=== PATIENT | female | born 1960 | race Caucasian/White ===

== ENCOUNTER 2019-02-16 11:46 | Day surgery (SDC) | payer OTHER | END 2019-02-16 17:20 | disposition home or self-care (01) | LOC: AMB-ENDOS 11:46 | DX: D12.8 Benign neoplasm of rectum (principal) ==

== ENCOUNTER 2019-03-03 13:07 | Inpatient (IN) | payer OTHER ==
[~2019-03-03] VITALS: Ht 157.5 cm; Wt 78.0 kg
[2019-04-01] MEDS ORDERED: NORVASC5 MG (12:06)
[2019-04-01] MEDS ORDERED: VALSARTAN320 MG (12:06)
[2019-04-01] MEDS ORDERED: BISOPROL (12:06)
[2019-04-01] MEDS ORDERED: METFORMIN HCL1000 MG (12:06)
[2019-04-01] MEDS ORDERED: ALPHAGAN P5 M2 (12:07)
[2019-04-01] MEDS ORDERED: RESTORIL15 M1 (12:07)
[2019-04-01] MEDS ORDERED: [UNRECOGNIZED DRUG - OTHER] (12:07)
[2019-04-01] MEDS ORDERED: LEXAPRO (12:07)
[2019-04-01] MEDS ORDERED: SODIUM CHLORIDE (12:08)
[2019-04-09] MEDS ORDERED: ESCITALOPRAM OX10 MG PO (08:06)
[2019-04-09] MEDS ORDERED: BYSTOLIC2.5 MG PO (08:13)
[2019-04-09] MEDS ORDERED: BISOPROLOL-HCT1 EACH PO (08:14)
[2019-04-09] MEDS ORDERED: MURO-1283.5 GM (08:14)
[2019-04-17] MEDS ORDERED: LEVOFLOXACIN500 MG PO (10:44)
[2019-04-17] MEDS ORDERED: FLAGYL500MG PO (10:45)
[2019-04-17] MEDS ORDERED: BUDESONIDE0.5 MG/2 M IH (10:46)
[2019-04-17] MEDS ORDERED: XOPENEX0.63 MG/3 IH (10:47)
== END 2019-04-17 14:59 | disposition home or self-care (01) | DRG 330 ==
LOC: SURG 04-01 12:00 → O/R 04-08 09:44 → SURH 04-08 09:44 → SURG 04-08 12:00 → SURH 04-09 15:24
PROVIDERS: ADMIT Surgery
PROC: 0DNW0ZZ Release Peritoneum, Open Approach (ICD-10-PCS; 2019-04-08)
PROC: 0DN80ZZ Release Small Intestine, Open Approach (ICD-10-PCS; 2019-04-08)
PROC: 0DJD8ZZ Inspection of Lower Intestinal Tract, Via Natural or Artificial Opening Endoscopic (ICD-10-PCS; 2019-04-08)
PROC: 0W9H00Z Drainage of Retroperitoneum with Drainage Device, Open Approach (ICD-10-PCS; 2019-04-08)
PROC: 0D1B0Z4 Bypass Ileum to Cutaneous, Open Approach (ICD-10-PCS; 2019-04-08)
PROC: 0WUF0JZ Supplement Abdominal Wall with Synthetic Substitute, Open Approach (ICD-10-PCS; 2019-04-08)
PROC: 4A12X4Z Monitoring of Cardiac Electrical Activity, External Approach (ICD-10-PCS; 2019-04-08)
PROC: 0DQ80ZZ Repair Small Intestine, Open Approach (ICD-10-PCS; 2019-04-08)
PROC: 3E0F7GC Introduction of Other Therapeutic Substance into Respiratory Tract, Via Natural or Artificial Opening (ICD-10-PCS; 2019-04-08)
PROC: 02HV33Z Insertion of Infusion Device into Superior Vena Cava, Percutaneous Approach (ICD-10-PCS; 2019-04-08)
PROC: B246ZZZ Ultrasonography of Right and Left Heart (ICD-10-PCS; 2019-04-08)
PROC: 0DTN0ZZ Resection of Sigmoid Colon, Open Approach (ICD-10-PCS; principal; 2019-04-08 13:15)
PROC: 0DJD4ZZ Inspection of Lower Intestinal Tract, Percutaneous Endoscopic Approach (ICD-10-PCS; 2019-04-08 13:15)
PROC: 4A033R1 Measurement of Arterial Saturation, Peripheral, Percutaneous Approach (ICD-10-PCS; 2019-04-09)
PROC: B54DZZZ Ultrasonography of Bilateral Lower Extremity Veins (ICD-10-PCS; 2019-04-12)
PROC: B32TYZZ Computerized Tomography (CT Scan) of Left Pulmonary Artery using Other Contrast (ICD-10-PCS; 2019-04-12)
PROC: B32SYZZ Computerized Tomography (CT Scan) of Right Pulmonary Artery using Other Contrast (ICD-10-PCS; 2019-04-12)
PROC: BB24ZZZ Computerized Tomography (CT Scan) of Bilateral Lungs (ICD-10-PCS; 2019-04-12)
DX: K57.20 Diverticulitis of large intestine with perforation and abscess without bleeding (principal); K91.72 Accidental puncture and laceration of a digestive system organ or structure during other procedure; J95.89 Other postprocedural complications and disorders of respiratory system, not elsewhere classified; J98.11 Atelectasis; T81.718A Complication of other artery following a procedure, not elsewhere classified, initial encounter; T81.72XA Complication of vein following a procedure, not elsewhere classified, initial encounter; N73.8 Other specified female pelvic inflammatory diseases; K66.0 Peritoneal adhesions (postprocedural) (postinfection); K62.4 Stenosis of anus and rectum; K43.5 Parastomal hernia without obstruction or gangrene; Z43.3 Encounter for attention to colostomy; I11.9 Hypertensive heart disease without heart failure; K62.7 Radiation proctitis; D12.8 Benign neoplasm of rectum; R09.02 Hypoxemia; E11.9 Type 2 diabetes mellitus without complications; N73.1 Chronic parametritis and pelvic cellulitis; D64.89 Other specified anemias; F41.8 Other specified anxiety disorders; F32.9 Major depressive disorder, single episode, unspecified

== ENCOUNTER → 2019-08-12 | Outpatient (CLI) | payer OTHER ==
[~2019-08-12] MED LIST: ALPHAGAN P5 M2; BISOPROL; BISOPROLOL-HCT1 EACH PO; BUDESONIDE0.5 MG/2 M IH; BYSTOLIC2.5 MG PO; ESCITALOPRAM OX10 MG PO; FLAGYL500MG PO; LEVOFLOXACIN500 MG PO; LEXAPRO; METFORMIN HCL1000 MG; MURO-1283.5 GM; NORVASC5 MG; RESTORIL15 M1; SODIUM CHLORIDE; VALSARTAN320 MG; XOPENEX0.63 MG/3 IH; [UNRECOGNIZED DRUG - OTHER]
== END | disposition home or self-care (01) ==
LOC: RX STUDY 08-11 09:40
DX: Z93.2 Ileostomy status (principal); K62.7 Radiation proctitis

== ENCOUNTER 2019-08-26 08:47 | Outpatient (CLI) | payer OTHER | END 2019-08-26 08:53 | disposition home or self-care (01) | LOC: LAB 08:47 | DX: R80.8 Other proteinuria (principal); N19 Unspecified kidney failure; E11.9 Type 2 diabetes mellitus without complications; I11.9 Hypertensive heart disease without heart failure ==

== ENCOUNTER 2019-08-28 09:54 | Outpatient (CLI) | payer OTHER | END 2019-08-28 15:00 | disposition home or self-care (01) | LOC: LAB 09:54 | DX: E86.0 Dehydration (principal); Z93.2 Ileostomy status ==

== ENCOUNTER 2019-08-28 15:32 | Inpatient (IN) | payer OTHER ==
[~2019-08-28] VITALS: Ht 152.4 cm; Wt 74.4 kg
[2019-09-02] MEDS ORDERED: DORZOLAMIDE-TI1 EACH OP (14:29)
[2019-09-02] MEDS ORDERED: LUMIFY2.5 ML OP (14:29)
[2019-09-02] MEDS ORDERED: RESTORIL15 M1 PO (14:30)
[2019-09-02] MEDS ORDERED: LEVAPRO PO (14:30)
[2019-09-07] MEDS ORDERED: VALSARTAN320 MG PO (09:31)
[2019-09-07] MEDS ORDERED: ESCITALOPRAM OX20 MG PO (09:31)
[2019-09-12] MEDS ORDERED: INTESTINEX680 M1 PO (09:55)
[2019-09-12] MEDS ORDERED: OMEPRAZOLE20 MG PO (09:55)
[2019-09-12] MEDS ORDERED: IMODIUM A-D2 MG PO (09:55)
[2019-09-12] MEDS ORDERED: PERCOCET 5-3251 EACH PO (09:55)
== END 2019-09-12 10:33 | disposition home or self-care (01) | DRG 330 ==
LOC: SURH 09-07 08:16 → O/R 09-07 08:16 → SURG 09-07 09:30 → SURH 09-07 18:42
PROVIDERS: ADMIT Surgery
PROC: 4A033R1 Measurement of Arterial Saturation, Peripheral, Percutaneous Approach (ICD-10-PCS; 2019-09-07)
PROC: 4A12X4Z Monitoring of Cardiac Electrical Activity, External Approach (ICD-10-PCS; 2019-09-07)
PROC: 0DQB0ZZ Repair Ileum, Open Approach (ICD-10-PCS; principal; 2019-09-07 09:30)
DX: Z43.2 Encounter for attention to ileostomy (principal); K92.1 Melena; K62.7 Radiation proctitis; E11.22 Type 2 diabetes mellitus with diabetic chronic kidney disease; E66.09 Other obesity due to excess calories; I12.9 Hypertensive chronic kidney disease with stage 1 through stage 4 chronic kidney disease, or unspecified chronic kidney disease; N18.3 Chronic kidney disease, stage 3 (moderate); W90.8 Exposure to other nonionizing radiation; Z79.4 Long term (current) use of insulin

== ENCOUNTER 2019-08-29 09:43 | Outpatient (CLI) | payer OTHER | END 2019-08-29 09:58 | disposition home or self-care (01) | LOC: LAB 09:43 | DX: K62.7 Radiation proctitis (principal); Z93.2 Ileostomy status; E86.0 Dehydration ==

== ENCOUNTER 2019-09-21 08:38 | Inpatient (IN) | payer OTHER ==
[~2019-09-21] VITALS: Ht 152.4 cm; Wt 74.4 kg
[~2019-09-21 08:38] MED LIST changes: +DORZOLAMIDE-TI1 EACH OP; +ESCITALOPRAM OX20 MG PO; +IMODIUM A-D2 MG PO; +INTESTINEX680 M1 PO; +LEVAPRO PO; +LUMIFY2.5 ML OP; +OMEPRAZOLE20 MG PO; +PERCOCET 5-3251 EACH PO; +RESTORIL15 M1 PO; +VALSARTAN320 MG PO
[2019-09-29] MEDS ORDERED: METFORMIN HCL1000 MG PO (10:20)
[2019-09-29] MEDS ORDERED: LUMIFY2.5 ML OP (10:20)
[2019-09-29] MEDS ORDERED: OMEPRAZOLE20 MG PO (10:20)
[2019-09-29] MEDS ORDERED: RESTORIL15 MG PO (10:20)
[2019-09-29] MEDS ORDERED: NORVASC5 MG PO (10:20)
[2019-09-29] MEDS ORDERED: POM (MEDICAMENTO EN PO (10:20)
[2019-09-29] MEDS ORDERED: DORZOLAMIDE-TI1 EACH OP (10:20)
[2019-09-29] MEDS ORDERED: BISOPROLOL-HCT1 EACH PO (10:20)
[2019-09-29] MEDS ORDERED: INTESTINEX680 M1 PO (10:20)
[2019-09-29] MEDS ORDERED: Vitamin B-6 PO (10:20)
[2019-09-29] MEDS ORDERED: Neurin-Sl Tablet Sl SL (10:20)
[2019-09-29] MEDS ORDERED: XOPENEX0.63 MG/3 IH (10:20)
== END 2019-09-29 12:49 | disposition home or self-care (01) | DRG 193 ==
LOC: ER 08:38 → MEDI 15:18 → SEC-K 15:18 → MEDI 16:44
PROVIDERS: ADMIT Internal Medicine Geriatric Medicine
PROC: 3E0F7GC Introduction of Other Therapeutic Substance into Respiratory Tract, Via Natural or Artificial Opening (ICD-10-PCS; 2019-09-21)
PROC: 4A033R1 Measurement of Arterial Saturation, Peripheral, Percutaneous Approach (ICD-10-PCS; 2019-09-21)
PROC: 4A12X4Z Monitoring of Cardiac Electrical Activity, External Approach (ICD-10-PCS; 2019-09-21)
PROC: B246ZZZ Ultrasonography of Right and Left Heart (ICD-10-PCS; principal; 2019-09-22)
PROC: B54DZZZ Ultrasonography of Bilateral Lower Extremity Veins (ICD-10-PCS; 2019-09-22)
PROC: 05HY33Z Insertion of Infusion Device into Upper Vein, Percutaneous Approach (ICD-10-PCS; 2019-09-23)
PROC: 8E0ZXY6 Isolation (ICD-10-PCS; 2019-09-23)
PROC: BB24Y0Z Computerized Tomography (CT Scan) of Bilateral Lungs using Other Contrast, Unenhanced and Enhanced (ICD-10-PCS; 2019-09-24)
DX: J18.1 Lobar pneumonia, unspecified organism (principal); I50.43 Acute on chronic combined systolic (congestive) and diastolic (congestive) heart failure; J45.41 Moderate persistent asthma with (acute) exacerbation; J15.7 Pneumonia due to Mycoplasma pneumoniae; K43.5 Parastomal hernia without obstruction or gangrene; I11.0 Hypertensive heart disease with heart failure; K76.0 Fatty (change of) liver, not elsewhere classified; R09.02 Hypoxemia; E11.65 Type 2 diabetes mellitus with hyperglycemia; E11.39 Type 2 diabetes mellitus with other diabetic ophthalmic complication; G47.33 Obstructive sleep apnea (adult) (pediatric); H42 Glaucoma in diseases classified elsewhere; F41.8 Other specified anxiety disorders; F32.89 Other specified depressive episodes; Z79.4 Long term (current) use of insulin

== ENCOUNTER 2020-04-28 06:52 | Day surgery (SDC) | payer OTHER ==
[~2020-04-28 06:52] MED LIST changes: +METFORMIN HCL1000 MG PO; +NORVASC5 MG PO; +Neurin-Sl Tablet Sl SL; +POM (MEDICAMENTO EN PO; +RESTORIL15 MG PO; +Vitamin B-6 PO
[2020-04-28] MEDS ORDERED: ZOVIRAX30 GM TOP (12:34)
== END 2020-04-28 14:40 | disposition home or self-care (01) ==
LOC: AMB-ENDOS 06:52
PROVIDERS: ATTEND Surgery
DX: K62.89 Other specified diseases of anus and rectum (principal); Z20.828 Contact with and (suspected) exposure to other viral communicable diseases

== ENCOUNTER 2021-09-11 08:09 | Outpatient (CLI) | payer OTHER ==
[~2021-09-11 08:09] MED LIST changes: +ZOVIRAX30 GM TOP
== END 2021-09-11 08:17 | disposition home or self-care (01) ==
LOC: TOM 08:09
DX: K43.2 Incisional hernia without obstruction or gangrene (principal)
CPT/HCPCS: 74178; Q9965